=== PATIENT | female | born 1995 | race Caucasian/White ===

== ENCOUNTER 2017-01-16 21:13 | Emergency (ER) | payer SELFPAY ==
[2017-01-16 21:28] VITALS: BP 119/79; PULSE 76; RESP 18; TEMP 98.5; O2SAT 99
--- NOTE | 2017-01-16 22:14 | ED PDOC ---
Upper Extremity Pain/Injury Time Seen by Provider: 01/16/17 22:06 Chief Complaint (Nursing): Finger,Hand,&Wrist Chief Complaint (Provider): R thumb injury History Per: Patient Additional Complaint(s): Pt. states earlier today she struck her R thumb against her laptop. Reports pain seems to radiate from the thumb to her wrist when she moves the thumb. Denies numbness, tingling, other injury. Past Medical History Reviewed: Historical Data, Nursing Documentation, Vital Signs Vital Signs: Last Vital Signs Temp 98.5 F 01/16/17 21:25 Pulse 76 01/16/17 21:25 Resp 18 01/16/17 21:25 BP 119/79 01/16/17 21:25 Pulse Ox 99 01/16/17 21:25 - Family History Family History: States: No Known Family Hx - Home Medications Home Medications: Ambulatory Orders Medication Instructions Recorded Ibuprofen [Motrin] 1 tab PO Q8 PRN #15 tab 02/21/15 Ibuprofen [Motrin] 600 mg PO Q6H PRN #15 tab 10/17/15 - Allergies Allergies/Adverse Reactions: Allergies Allergy/AdvReac Type Severity Reaction Status Date / Time No Known Allergies Allergy Verified 08/20/14 20:55 Review of Systems ROS Statement: Except As Marked, All Systems Reviewed And Found Negative Physical Exam - Physical Exam Appears: Positive for: Well, Non-toxic, No Acute Distress Skin: Positive for: Normal Color, Warm. Negative for: Rash Pulses-Radial (L): 2+ Extremity: Positive for: Normal ROM (actively of R thumb), Other (R hand: minimal tenderness but no swelling of 1st MCP joint; no snuffbox tenderness; no wrist tenderness; cap refill < 2 seconds; negative Finklestein's test) - ECG O2 Sat by Pulse Oximetry: 99 - Radiology X-Ray: Interpreted by Me (Hand x-ray) X-Ray Interpretation: No Acute Disease - Progress ED Course And Treament: Pt. was offered pain meds but refused. Thumb immobilized in velcro thumb spica splint applied by RN. CANDELARIO instructions given. Disposition - Clinical Impression Clinical Impression: Thumb sprain - Patient ED Disposition Is Patient to be Admitted: No - Disposition Disposition: Routine/Home Disposition Time: 23:23 Condition: STABLE Instructions: Finger Sprain (ED)
--- NOTE | 2017-01-17 12:30 | RAD ---
PROCEDURE: Right Hand Radiographs. HISTORY: Trauma COMPARISON: None. FINDINGS: BONES: Bone alignment and mineralization are normal. There is no acute fracture or bone destruction. JOINTS: Normal. SOFT TISSUES: Normal. OTHER FINDINGS: None. IMPRESSION: No acute fracture or dislocation.
== END 2017-01-16 23:55 | disposition home or self-care (01) ==
LOC: H.ER 21:13
DX: S63.601A Unspecified sprain of right thumb, initial encounter (principal); W22.8XXA Striking against or struck by other objects, initial encounter; Y92.89 Other specified places as the place of occurrence of the external cause

== ENCOUNTER 2017-05-31 15:57 | Emergency (ER) | payer MEDICAID, OTHER ==
[2017-05-31 16:14] VITALS: BP 127/70; PULSE 63; RESP 18; TEMP 99.2; O2SAT 93
--- NOTE | 2017-05-31 16:22 | ED PDOC ---
Lower Extremity Pain/Injury Time Seen by Provider: 05/31/17 16:04 Chief Complaint (Nursing): Lower Extremity Problem/Injury Chief Complaint (Provider): Leg pain History Per: Patient Additional History Per: Patient Additional Complaint(s): 21 yo female, no PMH, presents to ED with complaints of right foot pain. Pt reports that 2 months ago she hurt her foot on a long board but was never evaluated. 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 Pt has not taken anything for pain thus far. Past Medical History Reviewed: Nursing Documentation, Vital Signs Vital Signs: Last Vital Signs Temp 99.2 F 05/31/17 16:10 Pulse 63 05/31/17 16:10 Resp 18 05/31/17 16:10 BP 127/70 05/31/17 16:10 Pulse Ox 93 L 05/31/17 16:10 - Medical History PMH: No Chronic Diseases - Surgical History Surgical History: No Surg Hx - Family History Family History: States: No Known Family Hx - Living Arrangements Living Arrangements: With Family - Social History Current smoker - smoking cessation education provided: No Alcohol: None Drugs: Denies - Home Medications Home Medications: Ambulatory Orders Medication Instructions Recorded Ibuprofen [Motrin] 1 tab PO Q8 PRN #15 tab 02/21/15 Ibuprofen [Motrin] 600 mg PO Q6H PRN #15 tab 10/17/15 Ibuprofen [Motrin] 600 mg PO Q6 #20 tab 05/31/17 - Allergies Allergies/Adverse Reactions: Allergies Allergy/AdvReac Type Severity Reaction Status Date / Time Penicillins Allergy RASH Verified 05/31/17 16:[address] [facility] water Allergy ANAPHYLAXIS Uncoded 05/31/17 16:38 Review of Systems ROS Statement: Except As Marked, All Systems Reviewed And Found Negative Musculoskeletal: Positive for: Foot Pain Physical Exam - Reviewed Nursing Documentation Reviewed: Yes Vital Signs Reviewed: Yes - Physical Exam Appears: Positive for: Well, Non-toxic, No Acute Distress Head Exam: Positive for: ATRAUMATIC, NORMAL INSPECTION, NORMOCEPHALIC Skin: Positive for: Normal Color, Warm, DRY Eye Exam: Positive for: EOMI, Normal appearance, PERRL ENT: Positive for: Normal ENT Inspection Neck: Positive for: Normal, Painless ROM Cardiovascular/Chest: Positive for: Regular Rate, Rhythm Respiratory: Positive for: CNT, Normal Breath Sounds Gastrointestinal/Abdominal: Positive for: Normal Exam, Bowel Sounds, Soft Back: Positive for: Normal Inspection Extremity: Positive for: Tenderness (to right great toe and base of first metatarsal) Neurologic/Psych: Positive for: Alert, Oriented - ECG O2 Sat by Pulse Oximetry: 93 Medical Decision Making Medical Decision Making: Medicated with Motrin PO XR: NAD, as read by DAMIEN Placed in lance wrap and surgical shoe. Disposition - Clinical Impression Clinical Impression: Foot pain - Patient ED Disposition Is Patient to be Admitted: No - Disposition Referrals: Podiatry Clinic [Outside] Disposition: Routine/Home Disposition Time: 17:59 Condition: STABLE Prescriptions: Ibuprofen [Motrin] 600 mg PO Q6 #20 tab Instructions: Arthralgia (ED) Forms: [facility] (French), [facility] ED School/Work Excuse - POA Present On Arrival: None
--- NOTE | 2017-05-31 17:39 | RAD ---
PROCEDURE: Radiographs of the right great toe. TECHNIQUE:: AP radiograph of the right foot, with oblique and lateral view of the right great toe. COMPARISON: None. FINDINGS: BONES: Bone alignment and mineralization are normal. No acute displaced fracture. There is a lucency in the sesamoid bone with increased sclerosis adjacent to the head of the 1st metatarsal. JOINTS: Normal. SOFT TISSUES: Normal. OTHER FINDINGS: None. IMPRESSION: No acute displaced fracture or dislocation. Lucency in the sesamoid bone with increased sclerosis in adjacent to the head of the 1st metatarsal could represent a subacute fracture. Correlation with point tenderness is advised.
--- NOTE | 2017-05-31 17:40 | RAD ---
PROCEDURE: Radiographs of the left great toe. TECHNIQUE:: AP radiograph of the left foot, with oblique and lateral view of the left great toe. COMPARISON: None. FINDINGS: BONES: Normal. No fracture. JOINTS: Normal. SOFT TISSUES: Normal. OTHER FINDINGS: None. IMPRESSION: Normal left great toe radiographs.
== END 2017-05-31 17:55 | disposition home or self-care (01) ==
LOC: H.ER 15:57
DX: M79.671 Pain in right foot (principal); Z88.0 Allergy status to penicillin

== ENCOUNTER 2017-11-10 11:28 | Emergency (ER) | payer MEDICAID ==
[2017-11-10 12:54] VITALS: BMI 31.8
[2017-11-10] MEDS ORDERED: Sodium Chloride 0.9% 1,000 ML IV SCH (13:00)
[2017-11-10 13:19] VITALS: BP 121/74; PULSE 83; RESP 18; TEMP 98.3; O2SAT 99
--- NOTE | 2017-11-10 13:37 | ED PDOC ---
HPI: Abdomen Time Seen by Provider: 11/10/17 12:41 Chief Complaint (Nursing): Abdominal Pain Chief Complaint (Provider): Abdominal Pain History Per: Patient History/Exam Limitations: no limitations Onset/Duration Of Symptoms: Days (x 2) Additional Complaint(s): Ailyn is a 21 year old female who presents to the emergency department complaining of 2 days of nausea, vomiting, and mid-lower abdominal pain. Patient states she vomited twice, and reports abdominal pain as crampy and sharp. Denies diarrhea, urinary symptoms, fever, back pain, vaginal bleeding or discharge. PMD: [facility] Past Medical History Reviewed: Historical Data, Nursing Documentation, Vital Signs Vital Signs: Last Vital Signs Temp 98.3 F 11/10/17 13:14 Pulse 83 11/10/17 13:14 Resp 18 11/10/17 13:14 BP 121/74 11/10/17 13:14 Pulse Ox 99 11/10/17 17:33 - Medical History PMH: Asthma - Surgical History Surgical History: No Surg Hx - Family History Family History: States: No Known Family Hx - Social History Current smoker - smoking cessation education provided: No Alcohol: Social Drugs: Denies - Home Medications Home Medications: Ambulatory Orders Medication Instructions Recorded Ibuprofen [Motrin] 1 tab PO Q8 PRN #15 tab 02/21/15 Ibuprofen [Motrin] 600 mg PO Q6H PRN #15 tab 10/17/15 Ibuprofen [Motrin] 600 mg PO Q6 #20 tab 05/31/17 Ibuprofen [Motrin] 600 mg PO Q6 PRN #30 tab 11/10/17 Sulfamethoxazole/Trimethoprim 1 tab PO Q12 #6 tab 11/10/17 [Bactrim DS 800 mg-160 mg] - Allergies Allergies/Adverse Reactions: Allergies Allergy/AdvReac Type Severity Reaction Status Date / Time Penicillins Allergy RASH Verified 05/31/17 16:14 [facility] Allergy ANAPHYLAXIS Uncoded 05/31/17 16:38 Review of Systems ROS Statement: Except As Marked, All Systems Reviewed And Found Negative Constitutional: Negative for: Fever Gastrointestinal: Positive for: Nausea, Vomiting, Abdominal Pain (Mid-lower). Negative for: Diarrhea Genitourinary Female: Negative for: Dysuria, Hematuria, Vaginal Discharge, Vaginal Bleeding Musculoskeletal: Negative for: Back Pain Physical Exam - Reviewed Nursing Documentation Reviewed: Yes Vital Signs Reviewed: Yes - Physical Exam Appears: Positive for: Non-toxic Head Exam: Positive for: ATRAUMATIC, NORMAL INSPECTION, NORMOCEPHALIC Skin: Positive for: Normal Color, Warm, Dry Eye Exam: Positive for: Normal appearance, EOMI, PERRL ENT: Positive for: Normal ENT Inspection Neck: Positive for: Normal Cardiovascular/Chest: Positive for: Regular Rate, Rhythm Respiratory: Positive for: Normal Breath Sounds. Negative for: Respiratory Distress Gastrointestinal/Abdominal: Positive for: Guarding, Other ((-): McBurney's Point ). Negative for: Normal Exam ((+): Midperiumbilical, mid lower left lower adbominal pain), Rebound Pelvic Exam: Positive for: External Exam Normal, Speculum Exam Normal, Bimanual Exam Normal, No Cerv. Motion Tender, No Masses. Negative for: Active Bleeding, Blood Back: Positive for: Normal Inspection Extremity: Positive for: Normal ROM. Negative for: Deformity Neurologic/Psych: Positive for: Alert, Oriented (x 3) - Laboratory Results Result Diagrams: 11/10/17 13:40 11/10/17 13:40 - ECG O2 Sat by Pulse Oximetry: 99 (RA) Pulse Ox Interpretation: Normal Medical Decision Making Medical Decision Making: Time: 12:55 Impressions: r/o colitis, appendicitis, ovarian pathology Plan: - CMP - Lipase - CBC - Chlamydia/GC RNA, TMA - Sodium Chloride 0.9% 1,000 ml IV 999 mls/hr - Toradol 30 mg IVP STAT - Blood Culture - Urine Culture - Urinalysis PROCEDURE: CT Abdomen and Pelvis with contrast IMPRESSION: Deforms/partially collapsed right adnexal cyst with adjacent free fluid in the cul-de-sac. Unremarkable well-visualized appendix. 3:49 - Patient feels better. CT reviewed and negative for appendicitis. UA noted elevated LE and WBC elevated. Will treat with Bactrim. Will have patient follow up with primary care doctor or clinic. Advised to return to the ED if symptoms worsen or any other concern. Scribe Attestation: Documented by Jens Aponte, acting as a scribe for Alexandru Perez DO Provider Scribe Attestation: All medical record entries made by the Scribe were at my direction and personally dictated by me. I have reviewed the chart and agree that the record accurately reflects my personal performance of the history, physical exam, medical decision making, and the department course for this patient. I have also personally directed, reviewed, and agree with the discharge instructions and disposition. Disposition - Clinical Impression Clinical Impression: Abdominal pain, UTI (urinary tract infection) - Disposition Referrals: [facility], [Non-Staff] - Disposition Time: 16:30 Condition: IMPROVED Additional Instructions: Ms Lerma, thank you for letting us take care of you today. Your provider was Dr. Perez. You were treated for UTI, Abdominal Pain. The emergency medical care you received today was directed at your acute symptoms. If you were prescribed any medication, please fill it and take as directed. It may take several days for your symptoms to resolve. Return to the Emergency Department if your symptoms worsen, do not improve, or if you have any other problems. Please contact your doctor or call one of the physicians/clinics you have been referred to that are listed on the Patient Visit Information form that is included in your discharge packet. Bring any paperwork you were given at discharge with you along with any medications you are taking to your follow up visit. Our treatment cannot replace ongoing medical care by a primary care provider (PCP) outside of the emergency department. Thank you for allowing the [facility] team to be part of your care today. If you had an X-Ray or CT scan: A Radiologist will review the ED reading if any change in treatment is needed we will contact you. If you had a blood, urine, or wound culture: It will take several days for the results, if any change in treatment is needed we will contact you. If you had an STI test: It will take 48 hours for the results. Please call after 1 week if you have not heard back. Prescriptions: Ibuprofen [Motrin] 600 mg PO Q6 PRN #30 tab PRN Reason: Pain, Moderate (4-7) Sulfamethoxazole/Trimethoprim [Bactrim DS 800 mg-160 mg] 1 tab PO Q12 #6 tab Instructions: Urinary Tract Infection in Women (ED), Acute Abdominal Pain (ED) Forms: [employer] (Pashto), [facility] ED School/Work Excuse
[2017-11-10 13:57] LABS: BASO # 0.1 K/uL (0.0-0.2); BASO % 0.5 % (0.0-2.0); EOS % 0.3 % (0.0-4.0); LYMPH # 1.9 K/uL (1.0-4.3); LYMPH % 17.8 % (20.0-40.0); MEAN CELL VOLUME 91.2 fl (81.0-99.0); MEAN CORPUSCULAR HEMOGLOBIN 30.4 pg (27.0-31.0); MEAN CORPUSCULAR HGB CONC 33.3 g/dL (33.0-37.0); MEAN PLATELET VOLUME 8.9 fl (7.2-11.7); MONO # 0.6 K/uL (0.0-0.8); MONO % 5.8 % (0.0-10.0); NEUT # 8.2 K/uL (1.8-7.0); NEUT % 75.6 % (50.0-75.0); NRBC % 0.1 % (0.0-0.0); RBC 4.62 Mil/uL (3.80-5.20); RED CELL DISTRIBUTION WIDTH 12.8 % (11.5-14.5); WHITE BLOOD COUNT 10.8 K/uL (4.8-10.8)
[2017-11-10 14:07] LABS: ALB/GLOB RATIO 1.3 (1.0-2.1); ALBUMIN 4.7 g/dL (3.5-5.0); ALT/SGPT 52 U/L (9-52); AST/SGOT 29 U/L (14-36); BLOOD UREA NITROGEN 6 mg/dl (7-17); CALCIUM 9.7 mg/dL (8.4-10.2); GFR AFRICAN-AMERICAN > 60; GFR NON-AFRICAN AMERICAN > 60; LIPASE 85 U/L (23-300)
[2017-11-10] MEDS ORDERED: Iohexol 300 100 ML IJ ONE (14:13)
[2017-11-10 14:20] LABS: SQUAMOUS EPITHIAL 8 /hpf (0-5); URINE BILIRUBIN NEGATIVE (NEGATIVE); URINE BLOOD NEGATIVE (NEGATIVE); URINE CLARITY CLOUDY (Clear); URINE COLOR YELLOW (YELLOW); URINE GLUCOSE (UA) NEG (Normal); URINE LEUKOCYTE ESTERASE MOD Leu/uL (Negative); URINE NITRATE NEGATIVE (NEGATIVE); URINE PROTEIN NEGATIVE (NEGATIVE); URINE UROBILINOGEN 0.2-1.0 mg/dL (0.2-1.0)
--- NOTE | 2017-11-10 15:48 | CT ---
PROCEDURE: CT Abdomen and Pelvis with contrast HISTORY: abd pain r/o appy COMPARISON: None. TECHNIQUE: Contrast dose: 95 cc Omnipaque 300 Radiation dose: Total exam DLP = 1148.89 mGy-cm. This CT exam was performed using one or more of the following dose reduction techniques: Automated exposure control, adjustment of the mA and/or kV according to patient size, and/or use of iterative reconstruction technique. FINDINGS: LOWER THORAX: Unremarkable LIVER: PrintUnremarkable. GALLBLADDER AND BILE DUCTS: Unremarkable. PANCREAS: Unremarkable. No gross lesion or ductal dilatation. SPLEEN: Unremarkable. ADRENALS: Unremarkable. No mass. KIDNEYS AND URETERS: Unremarkable. No hydronephrosis. No solid mass. VASCULATURE: Unremarkable. No aortic aneurysm. BOWEL: Unremarkable. No obstruction. No gross mural thickening. APPENDIX: Normal appendix. PERITONEUM: Unremarkable. No free fluid. No free air. LYMPH NODES: Unremarkable. No enlarged lymph nodes. BLADDER: Unremarkable. REPRODUCTIVE: UnremarkablePartially deformed, collapse right adnexal cyst. Trace free fluid identified in the pelvis/cul de sac. BONES: No acute fracture. OTHER FINDINGS: None. IMPRESSION: Deforms/partially collapsed right adnexal cyst with adjacent free fluid in the cul-de-sac. Unremarkable well-visualized appendix.
[2017-11-10] MEDS ORDERED: Tmp-Smz 800 mg-160 mg DS Tab PO STA (15:49)
[2017-11-10] MEDS ORDERED: Tmp-Smz 800 mg-160 mg DS Tab ONE (16:26)
== END 2017-11-10 16:30 | disposition home or self-care (01) ==
LOC: H.ER 11:28
DX: N39.0 Urinary tract infection, site not specified (principal); Z88.0 Allergy status to penicillin; A74.9 Chlamydial infection, unspecified
CPT/HCPCS: 74177; 80053; 81003; 81025; 83690; 85025; 87040; 87086; 87491; 87591; 96361; 96374; 99283; J1885; J7040; Q9967

== ENCOUNTER 2018-05-28 11:26 | Emergency (ER) | payer MEDICAID ==
[2018-05-28 11:29] VITALS: BMI 32.4
[2018-05-28 11:31] VITALS: BP 128/78; PULSE 73; RESP 17; TEMP 99.3; O2SAT 99
--- NOTE | 2018-05-28 12:01 | ED PDOC ---
Lower Extremity Pain/Injury Time Seen by Provider: 05/28/18 11:43 Chief Complaint (Nursing): Lower Extremity Problem/Injury Chief Complaint (Provider): ankle pain History Per: Patient Additional Complaint(s): 22-year-old female presents with bilateral foot pain. 4 months ago patient injured right foot and was told by primary doctor that injury would get better but she still has persistent pain. Last week she injured her left foot and has pain and swelling to affected area. Patient is having difficulty walking secondary to pain. She reports no pain relief when taking Tylenol or Advil. PMD: none Past Medical History Reviewed: Historical Data, Nursing Documentation, Vital Signs Vital Signs: Last Vital Signs Temp 99.3 F 05/28/18 11:45 Pulse 73 05/28/18 11:45 Resp 17 05/28/18 11:45 BP 128/78 05/28/18 11:45 Pulse Ox 99 05/28/18 11:45 - Medical History PMH: Asthma, Bipolar Disorder - Family History Family History: States: No Known Family Hx - Living Arrangements Living Arrangements: With Family - Social History Current smoker - smoking cessation education provided: No Alcohol: None Drugs: Denies - Home Medications Home Medications: Ambulatory Orders Medication Instructions Recorded Ibuprofen [Motrin] 1 tab PO Q8 PRN #15 tab 02/21/15 Ibuprofen [Motrin] 600 mg PO Q6H PRN #15 tab 10/17/15 Ibuprofen [Motrin] 600 mg PO Q6 #20 tab 05/31/17 Ibuprofen [Motrin] 600 mg PO Q6 PRN #30 tab 11/10/17 Sulfamethoxazole/Trimethoprim 1 tab PO Q12 #6 tab 11/10/17 [Bactrim DS 800 mg-160 mg] Azithromycin [Zithromax] 500 mg PO ASDIR #2 tab 11/12/17 Ibuprofen [Motrin Tab] 800 mg PO Q8 PRN #20 tab 05/28/18 - Allergies Allergies/Adverse Reactions: Allergies Allergy/AdvReac Type Severity Reaction Status Date / Time Penicillins Allergy RASH Verified 05/28/18 11:49 [facility] water Allergy ANAPHYLAXIS Uncoded 05/31/17 16:38 Wells Criteria for PE - Wells Criteria for Pulmonary Embolism Clinical Signs and Symptoms of DVT: No P.E is #1 Diagnosis, or Equally Likely: No Heart Rate >100: No Immobilization at least 3 days;Surgery previous 4 weeks: No Previous, objectively diagnosed PE or DVT: No Hemoptysis: No Malignancy w/treatment within 6 months, or palliative: No Total Score: 0 Review of Systems ROS Statement: Except As Marked, All Systems Reviewed And Found Negative Musculoskeletal: Positive for: Foot Pain (bilateral) Physical Exam - Reviewed Nursing Documentation Reviewed: Yes Vital Signs Reviewed: Yes - Physical Exam Appears: Positive for: Well, Non-toxic, No Acute Distress Skin: Positive for: Normal Color. Negative for: Rash Eye Exam: Positive for: Normal appearance Extremity: Positive for: Other (Left foot: Moderate swelling and tenderness diffusely to left foot with no palpable bony deformity, normal distal sensation , right foot demonstrates minimal swelling with slight tenderness dorsally) Neurologic/Psych: Positive for: Alert, Oriented - Laboratory Results Urine POC: Negative - ECG O2 Sat by Pulse Oximetry: 99 Pulse Ox Interpretation: Normal - Other Rad Left foot and right foot x-rays X-Ray: Interpreted by Me, Viewed By Me X-Ray Interpretation: no fx, no dis Medical Decision Making Medical Decision Makin22 year old with b/l foot pain Plan: X-ray left and right feet Pain meds declined Crutches given, weightbearing crutch teaching provided. See procedure note. Rx for Motrin provided, patient referred to podiatry clinic for follow-up. Procedures - Splinting Location: Left foot Pre-Made Type: lance wrap, ortho shoe Pre-Proc Neuro Vasc Exam: normal Post-Proc Neuro Vasc Exam: normal Disposition - Clinical Impression Clinical Impression: Right foot sprain, Sprain of left foot - Patient ED Disposition Is Patient to be Admitted: No Counseled Patient/Family Regarding: Studies Performed, Diagnosis, Need For Followup, Rx Given - Disposition Referrals: Podiatry Clinic [Outside] Disposition: Routine/Home Disposition Time: 12:45 Condition: STABLE Additional Instructions: Ice, rest and elevate affected areas. Take prescription meds as directed as needed for pain. Follow-up with podiatry clinic for any persistent symptoms. Prescriptions: Ibuprofen [Motrin Tab] 800 mg PO Q8 PRN #20 tab PRN Reason: Pain, Moderate (4-7) Instructions: Foot Sprain (DC) Forms: [employer] (Danish)
--- NOTE | 2018-05-28 12:57 | RAD ---
Date of service: 05/28/2018 PROCEDURE: Right Foot Radiographs. HISTORY: Trauma COMPARISON: None. FINDINGS: BONES: Bone alignment and mineralization are normal. There is no acute displaced fracture or bone destruction. JOINTS: Normal. SOFT TISSUES: Normal. OTHER FINDINGS: None. IMPRESSION: No acute fracture or dislocation.
== END 2018-05-28 12:53 | disposition home or self-care (01) ==
LOC: H.ER 11:26
DX: S93.601A Unspecified sprain of right foot, initial encounter (principal); S93.602A Unspecified sprain of left foot, initial encounter; Y92.89 Other specified places as the place of occurrence of the external cause; F31.9 Bipolar disorder, unspecified; Z88.0 Allergy status to penicillin

== ENCOUNTER 2018-08-16 17:41 | Emergency (ER) | payer MEDICAID ==
[2018-08-16 17:42] VITALS: BMI 32.4
--- NOTE | 2018-08-16 19:55 | ED PDOC ---
Lower Extremity Pain/Injury Time Seen by Provider: 08/16/18 18:20 Chief Complaint (Nursing): Lower Extremity Problem/Injury Chief Complaint (Provider): knee pain, foot pain History Per: Patient History/Exam Limitations: no limitations Onset/Duration Of Symptoms: Days (6 months) Additional Complaint(s): Ailyn Lerma, a 22 year old female with no significant past medical history, presents to the ED with chronic knee pain ongoing for about 6 months. Patient states that 3 months ago her pain started worsening and now has a shooting pain going down her leg to her ankle. She notes her left knee buckling more frequently recently. Patient has not taking medication and denies numbness, tingling in the left foot or recent trauma. She states that she was sitting when she suddenly felt pain with movement. Patient complains of a separate right plantar foot pain onset a few months ago worsening over the past 2 weeks. She reports trouble walking on right foot due to pain. Patient denies fever, chills, night sweats or injury to foot. Patient states she was seen about a year ago with similar pain but was told nothing was there ad was sent home. Past Medical History Reviewed: Historical Data, Nursing Documentation, Vital Signs Vital Signs: Last Vital Signs Temp 98.2 F 08/16/18 17:51 Pulse 94 H 08/16/18 17:51 Resp 16 08/16/18 17:51 BP 135/82 08/16/18 17:51 Pulse Ox 99 08/16/18 17:51 - Medical History PMH: Asthma, Bipolar Disorder Denies: Chronic Kidney Disease - Family History Family History: States: Unknown Family Hx - Home Medications Home Medications: Ambulatory Orders Medication Instructions Recorded Ibuprofen [Motrin] 1 tab PO Q8 PRN #15 tab 02/21/15 Ibuprofen [Motrin] 600 mg PO Q6H PRN #15 tab 10/17/15 Ibuprofen [Motrin] 600 mg PO Q6 #20 tab 05/31/17 Ibuprofen [Motrin] 600 mg PO Q6 PRN #30 tab 11/10/17 Sulfamethoxazole/Trimethoprim 1 tab PO Q12 #6 tab 11/10/17 [Bactrim DS 800 mg-160 mg] Azithromycin [Zithromax] 500 mg PO ASDIR #2 tab 11/12/17 Ibuprofen [Motrin Tab] 800 mg PO Q8 PRN #20 tab 05/28/18 Ibuprofen [Motrin Tab] 600 mg PO Q6 PRN 5 Days tab 08/16/18 - Allergies Allergies/Adverse Reactions: Allergies Allergy/AdvReac Type Severity Reaction Status Date / Time Penicillins Allergy RASH Verified 08/16/18 17:50 [place] Allergy ANAPHYLAXIS Uncoded 08/16/18 17:50 Review of Systems ROS Statement: Except As Marked, All Systems Reviewed And Found Negative Constitutional: Negative for: Fever, Chills, Sweats Musculoskeletal: Positive for: Leg Pain (left knee pain), Foot Pain (right), Other (numbness, tingling, recent trauma or injury) Physical Exam - Reviewed Nursing Documentation Reviewed: Yes Vital Signs Reviewed: Yes - Physical Exam Appears: Positive for: Well, Non-toxic, No Acute Distress Head Exam: Positive for: ATRAUMATIC, NORMAL INSPECTION, NORMOCEPHALIC Cardiovascular/Chest: Positive for: Regular Rate, Rhythm Respiratory: Positive for: CNT, Normal Breath Sounds Extremity: Positive for: Normal ROM (left knee ankle hip, right knee ankle and phalanges), Tenderness (mild to medial and lateral aspect of knee), Other (left knee: no ecchymosis edema or erythema, no pain of anterior knee, right foot: plantar surface 1.5 cm firm nodule with punctate central lesion, no drainage to be expressed very tender evem to light touch, no erythema edema) Neurologic/Psych: Positive for: Alert, Oriented - ECG O2 Sat by Pulse Oximetry: 99 (RA) Pulse Ox Interpretation: Normal Medical Decision Making Medical Decision Making: Time: 18:20 Initial Impression: Initial Plan: --Xray knee 3 views --Urine -case discussed with podiatry, physical exam findings explained, recommend patient follow up in podiatry clinic tomorrow for treatment with shaving, patient in agreement -explained to patient that if knee xray doesn't show fracture, patient will need to follow up with orthopedist for mRI and further evaluation of possible ligament or meniscus tear -ibuprofen offered but patient states she is not in that much pain at the moment Scribe Attestation: Documented by Viola Muhammad, acting as a scribe for Ghada Harrison PA-C. Provider Scribe Attestation: All medical record entries made by the Scribe were at my direction and personally dictated by me. I have reviewed the chart and agree that the record accurately reflects my personal performance of the history, physical exam, medical decision making, and the department course for this patient. I have also personally directed, reviewed, and agree with the discharge instructions and disposition. Disposition - Clinical Impression Clinical Impression: Darby or callus, Knee pain - Patient ED Disposition Is Patient to be Admitted: No Counseled Patient/Family Regarding: Diagnosis, Need For Followup, Rx Given - Disposition Referrals: [facility] [Outside] [facility] [Outside] Podiatry Clinic [Outside] Disposition: Routine/Home Disposition Time: 22:12 Condition: STABLE Additional Instructions: Please f/u in Podiatry clinic tomorrow (call for appointment) to address Right foot Pain. You will need to see an orthopedist for further evaluation of knee pain with likely MRI. Use Ibuprofen as needed for pain. Prescriptions: Ibuprofen [Motrin Tab] 600 mg PO Q6 PRN 5 Days tab PRN Reason: Pain, Moderate (4-7) Instructions: Corns and Calluses, Chronic Knee Pain (DC) Forms: [employer] (Lithuanian) Print Language: SWAZI
[2018-08-16 22:13] VITALS: BP 130/78; PULSE 78; RESP 18; TEMP 98
[2018-08-17 01:09] VITALS: O2SAT 99
--- NOTE | 2018-08-17 09:34 | RAD ---
Date of service: 08/16/2018 PROCEDURE: Left Knee Radiographs. HISTORY: Pain. COMPARISON: Left knee radiographs 02/21/2015. FINDINGS: BONES: No acute cardiopulmonary disease appreciated. JOINTS: Normal. No osteoarthritis. JOINT EFFUSION: None. OTHER FINDINGS: None. IMPRESSION: No interval fracture, dislocation or destructive bony lesion appreciable left knee.
== END 2018-08-16 22:14 | disposition home or self-care (01) ==
LOC: H.ER 17:41
DX: L84 Corns and callosities (principal); M25.562 Pain in left knee; F31.9 Bipolar disorder, unspecified; Z88.0 Allergy status to penicillin